=== PATIENT | female | born 1945 | race Caucasian/White ===

== ENCOUNTER 2020-11-27 13:08 | Outpatient (CLI) | payer MEDICARE, BC | END 2020-11-27 13:09 | disposition home or self-care (01) | LOC: CSHMRI 13:08 | PROVIDERS: ATTEND Internal Medicine | DX: I63.9 Cerebral infarction, unspecified (principal); G31.84 Mild cognitive impairment of uncertain or unknown etiology; I67.82 Cerebral ischemia | CPT/HCPCS: 70551 ==

== ENCOUNTER 2021-04-27 19:15 | Observation (INO) | payer MEDICARE ==
[2021-04-27] MEDS ORDERED: Aspirin Chewable 81 MG TAB ONE (22:53)
[2021-04-28] MEDS ORDERED: Aspirin 325 mg Enteric Coated Tablet PO SCH (01:15)
[2021-04-28 01:30] LABS: #Eosinphils 0.3 10x3/uL (0.0-0.5); #Monocytes 0.6 10x3/uL (0.0-1.1); #Neutrophils 4.7 10x3/uL (1.5-8.4); %Basophils 0.5 % (0.0-2.0); %Eosinophils 3.2 % (0.0-6.0); %Lymphocytes 29.5 % (18.0-47.0); %Monocytes 7.1 % (0.0-10.0); %Neutrophils 59.3 % (40.0-75.0); Hemoglobin 12.5 g/dL (12.0-15.5); Mean Corpuscular HGB CONC 32.4 g/dL (32.0-36.0); Mean Corpuscular Hemoglobin 27.5 pg (27.0-33.0); Platelet Count 168 10x3/uL (150-450); RBC Distribution Width 13.3 % (11.5-14.5); Red Blood Cell (RBC) Count 4.54 10x6/uL (3.90-5.03); White Blood Cell (WBC) Count 7.9 10x3/uL (3.5-10.5)
[2021-04-28] MEDS ORDERED: Potassium Chloride 20 MEQ TAB PO SCH (01:30)
[2021-04-28 01:47] LABS: Anion Gap 15 mmol/L (10-20); BUN (Urea Nitrogen) 18 mg/dL (9.8-20.1); Calc. Creatinine Clearance 0 mL/min (70-130); Calcium 9.7 mg/dL (7.8-10.44); Carbon Dioxide 24 mmol/L (23-31); Chloride 104 mmol/L (98-107); Glucose 96 mg/dL (83-110); Magnesium 2.5 mg/dL (1.6-2.6); Potassium 3.8 mmol/L (3.5-5.1); Sodium 139 mmol/L (136-145)
[2021-04-28] MEDS ORDERED: Potassium Chloride 20 MEQ TAB ONE (02:28)
[2021-04-28 03:21] LABS: Cardiac Risk 3.3 (Less than 4.5)
[2021-04-28 05:46] VITALS: BP 144/83; TEMP 97.1
[2021-04-28] MEDS ORDERED: Levothyroxine Sodium 100 MCG TAB PO SCH (06:00)
[2021-04-28] MEDS ORDERED: Furosemide 20 MG TAB PO SCH (09:00)
[2021-04-28] MEDS ORDERED: Aspirin 81 mg Enteric Coated Tablet PO SCH (09:00)
[2021-04-28] MEDS ORDERED: Enoxaparin Sodium 40 MG/0.4 ML SYRINGE SC SCH (09:00)
[2021-04-28] MEDS ORDERED: Aspirin Chewable 81 MG TAB ONE (09:19)
[2021-04-28] MEDS ORDERED: Enoxaparin Sodium 40 MG/0.4 ML SYRINGE ONE (09:20)
[2021-04-28] MEDS ORDERED: Donepezil HCl 5 MG TAB PO SCH (21:00)
[2021-04-28] MEDS ORDERED: Atorvastatin Calcium 20 MG TAB PO SCH (21:00)
== END 2021-04-28 00:45 | disposition left against medical advice (07) ==
LOC: CSHERS 19:15 → CSHERHOLD 23:43 → INTOOBSV 23:43 → CSHERHOLD 04-28 10:30
PROVIDERS: ADMIT Family Medicine; ATTEND Nurse Practitioner Family
DX: R49.0 Dysphonia (principal); I10 Essential (primary) hypertension; E78.5 Hyperlipidemia, unspecified; E03.9 Hypothyroidism, unspecified; K21.9 Gastro-esophageal reflux disease without esophagitis; E87.6 Hypokalemia
CPT/HCPCS: 36415; 70450; 70492; 70551; 80048; 80061; 83735; 85025; 93880; 96374; G0378; J1650